=== PATIENT | female | born 1975 | race Caucasian/White ===

== ENCOUNTER 2017-07-12 12:16 | Emergency (ER) | payer BC ==
[~2017-07-12] VITALS: Ht 152.4 cm; Wt 104.3 kg
[~2017-07-12 12:16] MED LIST: ACETAMINOPHEN-O1 TAB PO; AMERINET C40 MG/0.4 IJ; COUMADIN 10MG T10 MG PO; COUMADIN 5MG TAB5 MG PO; COUMADIN 7.5MG7.5 MG PO; COUMADIN5 MG PO; LASIX 20MG. TAB20 MG PO; LOVENOX 10100 MG/11 SC; NOMEDS XX
--- OUTSIDE RECORDS SUMMARY | 2017-07-12 12:26 | External Medical Summary Rpt ---
Author Author TO Address Unknown Phone [email or web address] Purpose Continuity of Care Document - through 2016
--- OUTSIDE RECORDS SUMMARY | 2017-07-12 12:26 | External Medical Summary Rpt ---
Author Author TO Address Unknown Phone [email or web address] Purpose Continuity of Care Document - through 2016
--- OUTSIDE RECORDS SUMMARY | 2017-07-12 12:26 | External Medical Summary Rpt ---
Author Author , TO ARIZA Address Unknown Phone [email or web address] Care Team Providers Care Quality Project Manager Name Role Phone Kitty Lange MD, Unavailable Unavailable Kitty Lange MD Purpose Continuity of Care Document - 01-18-2014 through 2016 Problems Code Diagnosis DOS Provider Status 453.42 453.42 01-18-2014 [facility] EMBOLISM & THROMBOSIS DEEP VESSELS DISTAL LE D64.9 ANEMIA, UNSPECIFIED D86.9 SARCOIDOSIS , UNSPECIFIED I82.629 ACUTE EMBOLISM AND THROMBOSIS OF DEEP VN UNSP UP EXTREM J18.9 PNEUMONIA, UNSPECIFIED ORGANISM M79.602 PAIN IN LEFT ARM M79.605 PAIN IN LEFT LEG M79.672 Pain in left foot R00.0 TACHYCARDIA , UNSPECIFIED R09.02 HYPOXEMIA Z86.718 PERSONAL HISTORY OF OTHER VENOUS THROMBOSIS AND EMBOLISM Allergies, Adverse Reactions, Alerts Type Allergy to substance Drug Allergy Adverse Reaction to Substance Substance Reaction Severity INGREDIENT: NO KNOWN Unknown Unknown - NO KNOWN DRUG ALLERGY Metronidazole SOA Unknown Medications Na ND Rx Da Fi Fi Am Da Di Ph RX Ph St me C No te ll ll ou ys ag ar # ys at rm s nt no ma ic us Or Da si cy ia de te s n re d Sa 63 02 0 No li 80 -2 ne 70 1- Lo 10 20 ng Fl 07 14 er us 5 h Ac 10 ti ML ve Sy ri ng e Vital Signs 01-18-2014 19:03 Name Value Interpretat Reference Comment ion Range Body 98.2 [degF] Temperature BP 67 mm[Hg] Diastolic BP Systolic 146 mm[Hg] Heart 87 /min Rate/Pulse O2% 98 % Respiratory 22 /min Rate 01-18-2014 18:49 Name Value Interpretat Reference Comment ion Range Body 98.2 [degF] Temperature 01-18-2014 17:13 Name Value Interpretat Reference Comment ion Range BP 109 mm[Hg] Diastolic BP Systolic 160 mm[Hg] Heart 91 /min Rate/Pulse O2% 98 % Respiratory 20 /min Rate Results Labs Lab Lab Date Result Refere Interp Status Commen Order Detail nces retati t Range on BASIC METABOLIC PANEL (01-18-2014 16:30) Glucose 91 74-106 complet 014 mg/dL ed Bld-mCn 16:30 c BUN 10 7-18 complet Bld-mCn 014 mg/dL ed c 16:30 Creat 0.8 0.6-1.0 complet SerPl-m 014 mg/dL ed Cnc 16:30 Creat 172 50-200 complet Cl 014 ML/MIN ed predict 16:30 ed SerPl C-G-vRa te GFR/BSA 81 59- complet .pred 014 ML/MIN ed SerPl 16:30 Schwart z-vRate Sodium 139 136-145 complet SerPl-s 014 mmoL/L ed Cnc 16:30 Potassi 4.2 3.5-5.1 complet um 014 mmoL/L ed SerPl-s 16:30 Cnc Chlorid 100 98-107 complet e 014 mmoL/L ed SerPl-s 16:30 Cnc CO2 29 21.0-32 complet SerPl-s 014 mmoL/L .0 ed Cnc 16:30 Calcium 8.5 8.5-10. complet 014 mg/dL 1 ed SerPl-m 16:30 Cnc PROTIME/INR (01-18-2014 16:30) PROTHRO 16.4 9.9-11. complet MBIN 014 SECONDS 6 ed TIME 16:30 INR Bld 1.53 0.9-1.1 complet 014 UNK ed 16:30 Encounters Encounter Start End Date Code Location Performer Type Date Emergency PRECIOUS Lange MD (ER) 4 16:37 4 19:02 [facility]
--- OUTSIDE RECORDS SUMMARY | 2017-07-12 12:26 | External Medical Summary Rpt ---
Author Author , TO ARIZA Address Unknown Phone [email or web address] Immunization Name Date Rout CVX Reac Dose Comm Prov Is Faci e tion ent ider Refu lity Give sed n Infl 10-0 140 999 Hist LEXC No LEXC uenz 1-20 oric KIM ALVAREZ a, 12 al P-Fr Info ee rmat ion - Sour ce Unsp ecif ied
--- OUTSIDE RECORDS SUMMARY | 2017-07-12 12:26 | External Medical Summary Rpt ---
Author Author , TO ARIZA Address Unknown Phone [email or web address] Care Team Providers Care Popped Corn Oven Attendant Name Role Phone Kitty Lange MD, Unavailable Unavailable Kitty Lange MD Purpose Continuity of Care Document - 01-18-2014 through 2016 Problems Code Diagnosis DOS Provider Status 453.42 453.42 01-18-2014 [facility] EMBOLISM & THROMBOSIS DEEP VESSELS DISTAL [...] Lange MD (ER) 4 16:37 4 19:02 [facility]
--- OUTSIDE RECORDS SUMMARY | 2017-07-12 12:26 | External Medical Summary Rpt ---
Author Author TO Morris, TO Morris Organization TO Production Address Unknown Phone Unavailable
--- OUTSIDE RECORDS SUMMARY | 2017-07-12 12:26 | External Medical Summary Rpt ---
Author Author , TO ARIZA Address Unknown Phone [email or web address] Immunization Name Date Rout CVX Reac Dose Comm Prov Is Faci e tion ent ider Refu lity Give sed n Infl 10-0 140 999 Hist LEXC No LEXC uenz 1-20 oric KIM ALVAREZ a, 12 al P-Fr Info ee rmat ion - Sour ce Unsp ecif ied
--- NOTE | 2017-07-12 12:54 | Urgent Treatment Center Report ---
History of Present Issue Date/Time Seen by Provider 07/12/17 1232 Visit Reason Pt arrived:Walked Presenting Problem:PT STATES SHE BELIEVES SHE HAS A SINUS INFECTION. STATES CONGESTION THAT BEGAN TWO DAYS AGO Location if Accident: Onset of symptoms date/time:07/10/17/ or onset unknown for:MEDICAL HX UNKNOWN Have you (or family members/close friends) recently traveled outside the [place]? N If Yes, where/when: Have you had exposure to infectious disease within the past month? TB? Other? Specify: Patient state that she feels like she has a bad sinus infection State that she often gets sinus infection with the season change and changes in weather States that she is having pain and pressure behind her eyes and pain when she tries to chew food State that she also has a yeast infection and she knows that if she gets antibiotics it will only get worse ALLERGIES Coded Allergies: Sulfa (Sulfonamide Antibiotics) (07/12/17) metronidazole (From FLAGYL) (SOA 11/11/16) Home Medications Reported Medications WARFARIN SOD (Coumadin) 5 MG PO M,T,W,R WARFARIN SOD (Coumadin) 10 MG PO F,SAT,SUN History Medical History General CAD? No Angina: No [place]: No Hypertension? No Hyperlipidemia? No CHF? No DVT? Yes PE? No COPD? No Asthma? No Anemia? No GERD? No Gastric ulcers? No GI Bleed? No Hernia? No Thyroid Problems? No Hypothyroidism? No CVA? No Seizures? No Diabetes? No Renal Insuffiency? No UTI? No Stones? No GB Disease: Yes Nephritic Syndrome? No Asplenia? No Hepatitis? No Arthritis? No Migraines? No Cataracts? No Glaucoma? No MRSA? No HIV? No TB? No Anxiety? No Depression? No Cancer? No More? No Immunization HX DT/Tetanus Unknown Flu Flu Season Pneumonia Refuses Surgical Hx Previous Surgery?Y X 2 [place] STEEL PLATE LEFT ARM GASTRIC BYPASS TUBAL VAGINAL LAP ASSISTED -HYSTERECTOMY 11/08/16 Family History Family HX Diabetes Yes CAD Yes Hypertension Yes Hyperlipidemia Yes Cancer No TB No Social History Smoking Hx Smoker: Never Smoker Tobacco: No Alcohol Alcohol: No Review of Systems All Other Systems Reviewed and Negative ENT nose discharge, nose congestion. Genitourinary vaginal discharge. Physical Exam Vital Signs Vital Signs Date Time Temp Pulse Resp B/P Pulse O2 O2 Flow FiO2 Ox Delivery Rate 07/12 1230 97.7 105 20 137/88 99 General Appearance normal appearance, WD/WN, no apparent distress Ear, Nose, Throat sinus pain/drainage, nasal congestion, Throat mildly red and irritated, Tenderness noted on frontal sinus area with greenish yellow mucous Respiratory Status Yes: trachea midline, chest symmetrical, non tender chest. No: respiratory distress. Cardiovascular normal exam, regular rate/rhythm, no peripheral edema, no gallop Neurologic alert, merchandise coordinator II-XII nml as tested, normal exam, no motor/sensory deficits, oriented x 3 Comments Patient state that she is having yeast infection states that she is having the itching and burning, state that she has had it before Medical Decision Making LABS/Meds/Orders Pt receiving controlled substance in ED? No Results/Orders Laboratory Tests 07/12/17 1305: PT 11.4, INR 1.05 Current Medication Orders Sig/Shefali Start time Last Medication Dose Route Stop Time Status Admin Methylprednisolone 125 MG ONCE ONE 07/12 1300 DC 07/12 Sodium Succinate IM 07/12 1301 1252 Methylprednisolone 0 .STK-MED ONE 07/12 1249 DC Sodium Succinate .ROUTE Orders Procedure Date/time Status PROTHROMBIN TIME 07/12 1253 Complete Departure Departure Time of Disposition 1244 Disposition DC Home or Self Care(routine) Clinical Impression Primary Impression: Sinusitis Qualifiers: Sinusitis location: frontal Chronicity: unspecified Qualified Code: J32.1 - Chronic frontal sinusitis Condition STABLE Patient Instructions DI for Sinusitis, DI for Vaginal Yeast Infection, Sinusitis , Vaginal Yeast Infection Additional Instructions Take medication as prescribed Follow up with family doctor to watch INR as antibiotics can affect your INR Take medications as prescribed Return if needed Start antibiotic. It may take 2-3 days to notice much improvement so be sure to use conservative measures as discussed for symptoms Flonase 2 spray in each nostril daily to help with nasal congestion, sinus an ear pressure/inflammation Lots of Fluids Sleep elevated Humidifer/vaporizer Follow up with family doctor to monitor INR and adjust as needed Discharge Counseling Counseled pt/family regarding diagnosis, medications/RX, home care, follow up needs Prescriptions Current Visit Scripts Amoxicillin/Potassium Clav (Augmentin 875-125 Tablet) 1 EACH PO BID #14 TAB Fluconazole (Diflucan 150MG) 150 MG PO DAILY #2 TAB at 1344
[2017-07-12] MEDS ORDERED: AUGMENTIN 875-1 EACH PO (13:38)
[2017-07-12] MEDS ORDERED: DIFLUCAN150 MG PO (13:38)
[2017-07-12 13:42] VITALS: BP 137/88
== END 2017-07-12 13:15 | disposition home or self-care (01) ==
LOC: UTC 12:16
DX: J32.1 Chronic frontal sinusitis (principal); B37.3 Candidiasis of vulva and vagina; Z79.01 Long term (current) use of anticoagulants

== ENCOUNTER 2017-08-13 09:43 | Emergency (ER) | payer BC ==
[~2017-08-13] VITALS: Ht 152.4 cm; Wt 101.6 kg
[~2017-08-13 09:43] MED LIST changes: +AUGMENTIN 875-1 EACH PO; +DIFLUCAN150 MG PO
[2017-08-13] MEDS ORDERED: ZITHROMAX Z-PA250 M2 PO (10:53)
[2017-08-13] MEDS ORDERED: PREDNISONE 20MG20 MG PO (10:53)
[2017-08-13] MEDS ORDERED: FLONASE ALLERG9.9 ML NS (10:53)
--- NOTE | 2017-08-13 10:56 | Urgent Treatment Center Report ---
History of Present Issue Date/Time Seen by Provider 08/13/17 1047 Visit Reason Pt arrived:Walked Presenting Problem:PT STATES SINUS PAIN/PRESSURE, PRODUCTIVE COUGH WITH YELLOW/ GREEN SPUTUM X3 WEEKS Location if Accident: Onset of symptoms date/time:/ or onset unknown for:MEDICAL HX UNKNOWN Have you (or family members/close friends) recently traveled outside the [place]? N If Yes, where/when: Have you had exposure to infectious disease within the past month? TB? Other? Specify: Source patient Exam Limitations no limitations Comment 41-year-old female presents for nasal congestion, green nasal discharge, coughing up green sputum, and sinus pressure for 4 weeks and not improving. Patient states she was seen at the [facility] and was placed on steroids but improved only for about a week and then started having same symptoms. ALLERGIES Coded Allergies: Sulfa (Sulfonamide Antibiotics) (07/12/17) metronidazole (From FLAGYL) (SOA 11/11/16) Home Medications Active Scripts Amoxicillin/Potassium Clav (Augmentin 875-125 Tablet) 1 EACH PO BID #14 TAB Prov: 07/12/17 Discontinued Scripts Fluconazole (Diflucan 150MG) 150 MG PO DAILY #2 TAB Prov: 07/12/17 DC: 08/10/17 0000 Reported Medications WARFARIN SOD (Coumadin) 5 MG PO M,T,W,R WARFARIN SOD (Coumadin) 10 MG PO F,SAT,SUN History Medical History General CAD? No Angina: No [place]: No Hypertension? No Hyperlipidemia? No CHF? No DVT? Yes PE? No COPD? No Asthma? No Anemia? No GERD? No Gastric ulcers? No GI Bleed? No Hernia? No Thyroid Problems? No Hypothyroidism? No CVA? No Seizures? No Diabetes? No Renal Insuffiency? No UTI? No Stones? No GB Disease: Yes Nephritic Syndrome? No Asplenia? No Hepatitis? No Arthritis? No Migraines? No Cataracts? No Glaucoma? No MRSA? No HIV? No TB? No Anxiety? No Depression? No Cancer? No More? No Immunization HX DT/Tetanus Unknown Flu Flu Season Pneumonia Refuses Surgical Hx Previous Surgery?Y X 2 [place] STEEL PLATE LEFT ARM GASTRIC BYPASS TUBAL VAGINAL LAP ASSISTED -HYSTERECTOMY 11/08/16 Family History Family HX Diabetes Yes CAD Yes Hypertension Yes Hyperlipidemia Yes Cancer No TB No Social History Smoking Hx Smoker: Never Smoker Tobacco: No Alcohol Alcohol: No Review of Systems All Other Systems Reviewed and Negative ENT see HPI, nose discharge, nose congestion. Respiratory see HPI, cough Cardiovascular denies no symptoms reported Physical Exam Vital Signs Vital Signs Date Time Temp Pulse Resp B/P Pulse O2 O2 Flow FiO2 Ox Delivery Rate 08/13 1015 98.2 104 20 109/70 98 - WBC >12,000 or <4,000 or 10% bands? 2 or more SIRS Criteria Met? B/P:109/70 MAP:83 Creatinine >2.0? UA output<0.5ml/kg/hr for 2 hrs? Platelet count >100,000? Lactate >2.0mmol/1? INR >1.2 or PTT > than 60 sec? Evidence of Organ Dysfunction? Provider documented clinical suspician of infection? Sepsis Criteria Count: 2 Sepsis Risk: General Appearance normal appearance, no apparent distress Eye Exam - bilateral eye normal exam, bilateral eye PERRL, bilateral eye EOMI Ear, Nose, Throat sinus pain/drainage, nasal congestion, pharyngeal erythema Neck normal inspection, full range of motion Respiratory Status Yes: trachea midline, chest symmetrical. No: respiratory distress. Lung Sounds bilateral: normal breath sounds, lungs clear. Cardiovascular normal exam, regular rate/rhythm Neurologic alert, normal exam, oriented x 3 Medical Decision Making LABS/Meds/Orders Pt receiving controlled substance in ED? No Results/Orders Current Medication Orders Sig/Shefali Start time Last Medication Dose Route Stop Time Status Admin Dexamethasone Sodium 0 .STK-MED ONE 08/13 1051 DC Phosphate .ROUTE Dexamethasone Sodium 4 MG ONCE ONE 08/13 1045 DC Phosphate IM 08/13 1046 Departure Departure Time of Disposition 1050 Disposition DC Home or Self Care(routine) Clinical Impression Primary Impression: Sinusitis Qualifiers: Sinusitis location: maxillary Chronicity: acute Recurrence: non- recurrent Qualified Code: J01.00 - Acute maxillary sinusitis, unspecified Condition STABLE Referrals NIKKI REYES (Family) Patient Instructions DI for Sinusitis, Sinusitis Additional Instructions Medication as ordered, start steroids tomorrow Follow-up with primary care this week If symptoms do not improve or worsen return to be seen in the ER or UTC Discharge Counseling Counseled pt/family regarding diagnosis, medications/RX, home care, follow up needs Prescriptions Current Visit Scripts Azithromycin (Zithromax) 250 MG PO DAILY #6 TAB USE DIRECTED. Fluticasone Propionate (Flonase Allergy Relief) 9.9 ML NS DAILY 14 Days Prednisone (Prednisone 20MG) 20 MG PO BID 5 Days Comments Patient states she no longer takes Coumadin at 1052
[2017-08-13 11:13] VITALS: BP 109/70
== END 2017-08-13 11:21 | disposition home or self-care (01) ==
LOC: UTC 09:43
DX: J01.00 Acute maxillary sinusitis, unspecified (principal); Z86.718 Personal history of other venous thrombosis and embolism; Z79.01 Long term (current) use of anticoagulants

== ENCOUNTER 2017-10-05 08:51 | Emergency (ER) | payer BC ==
[~2017-10-05] VITALS: Ht 152.4 cm; Wt 106.6 kg
[~2017-10-05 08:51] MED LIST changes: +FLONASE ALLERG9.9 ML NS; +PREDNISONE 20MG20 MG PO; +ZITHROMAX Z-PA250 M2 PO
--- OUTSIDE RECORDS SUMMARY | 2017-10-05 08:54 | External Medical Summary Rpt | CCD ---
Author Author , TO Organization TO Address Unknown Phone [email or web address] Care Team Providers Care Taxicab Starter Name Role Phone Kitty Lange MD, Unavailable Unavailable Kitty Lange MD Purpose Continuity of Care Document - 01-18-2014 through 2016 Problems Code Diagnosis DOS Provider Status 453.42 453.42 01-18-2014 [facility] EMBOLISM & THROMBOSIS DEEP VESSELS DISTAL LE Allergies, Adverse Reactions, Alerts Type Allergy to [...] Lange MD (ER) 4 16:37 4 19:02 [facility]
--- OUTSIDE RECORDS SUMMARY | 2017-10-05 08:54 | External Medical Summary Rpt | CCD ---
Author Author , TO Organization TO Address Unknown Phone [email or web address] Care Team Providers Care Shift Supervisor Melting Name Role Phone Kitty Lange MD, Unavailable Unavailable Kitty Lange MD Purpose Continuity of Care Document - 01-18-2014 through 2016 Problems Code Diagnosis DOS Provider Status 453.42 453.42 01-18-2014 [facility] EMBOLISM & THROMBOSIS DEEP VESSELS DISTAL LE [...] Lange MD (ER) 4 16:37 4 19:02 [facility]
--- OUTSIDE RECORDS SUMMARY | 2017-10-05 08:55 | External Medical Summary Rpt ---
Author Author TO Morris, TO Production Organization TO Production Address Unknown Phone Unavailable Results INR in Blood by Coagulation assay Observa Value Referen Units Interpr Notes Date tion ce etation Range IS PATIENT ON ANTICOAGULANTS? Y LIST ANTICOAGULANTS: WARFARIN INR in 0.9 - 1.1 No Normal INDICATIO Jul 12 Blood by informati N 2016 1:05 Coagulati on in PM on assay source INR data RANGETHER APY FOR DVT, PE, ATRIAL FIB; 2.0 - 3.0PROPHY LAXIS FOR VTETHERAP Y FOR MECHANICA L HEART 2.5 - 3.5VALVE; PREVENTIO N OF SYSTEMICE MBOLISM SECONDARY TO AMI Prothromb 9.4 - SECONDS Normal No Jul 12 in time 11.8 informati 2016 1:05 (PT) in on in PM Platelet source poor data plasma by Coagulati on assay
--- OUTSIDE RECORDS SUMMARY | 2017-10-05 08:55 | External Medical Summary Rpt | CCD ---
Author Author Conduent Organization Conduent Address Unknown Phone Unavailable Purpose Continuity of Care Document - through 2016
--- OUTSIDE RECORDS SUMMARY | 2017-10-05 08:55 | External Medical Summary Rpt | CCD ---
Author Author , TO Organization TO Address Unknown Phone [email or web address] Immunization Name Date Rout CVX Reac Dose Comm Prov Is Faci e tion ent ider Refu lity Give sed n Infl 10-0 140 999 Hist LEXC No LEXC uenz 1-20 oric KIM ALVAREZ a, 12 al P-Fr Info ee rmat ion - Sour ce Unsp ecif ied
--- OUTSIDE RECORDS SUMMARY | 2017-10-05 08:55 | External Medical Summary Rpt | CCD ---
Author Author , TO Organization TO Address Unknown Phone [email or web address] Immunization Name Date Rout CVX Reac Dose Comm Prov Is Faci e tion ent ider Refu lity Give sed n Infl 10-0 140 999 Hist LEXC No LEXC uenz 1-20 oric KIM ALVAREZ a, 12 al P-Fr Info ee rmat ion - Sour ce Unsp ecif ied
--- NOTE | 2017-10-05 09:25 | Urgent Treatment Center Report ---
History of Present Issue Date/Time Seen by Provider 10/05/17923 Visit Reason Pt arrived:Walked Presenting Problem:weak, dizzy, fever x2 days Location if Accident: Onset of symptoms date/time:/ or onset unknown for:MEDICAL HX UNKNOWN Have you (or family members/close friends) recently traveled outside the [place]? N If Yes, where/when: Have you had exposure to infectious disease within the past month? TB? Other? Specify: Patient state that she has been having flu like symptoms for several days now State that she has felt dizzy, weak and had a fever on and off State that now her throat is sore and she is having body aches from head to toe and over all not feeling well State that she also just began to have some nausea and upset stomach. States that she was haivng sinus issues a couple weeks ago that just went away and now they seem to be worse blowing out yellowish green mucous ALLERGIES Coded Allergies: Sulfa (Sulfonamide Antibiotics) (07/12/17) metronidazole (From FLAGYL) (SOA 11/11/16) Home Medications Active Scripts Amoxicillin/Potassium Clav (Augmentin 875-125 Tablet) 1 EACH PO BID #14 TAB Prov: 07/12/17 Azithromycin (Zithromax) 250 MG PO DAILY #6 TAB Prov: 08/13/17 Fluticasone Propionate (Flonase Allergy Relief) 9.9 ML NS DAILY 14 Days Prov: 08/13/17 Prednisone (Prednisone 20MG) 20 MG PO BID 5 Days Prov: 08/13/17 Reported Medications WARFARIN SOD (Coumadin) 5 MG PO M,T,W,R WARFARIN SOD (Coumadin) 10 MG PO F,SAT,SUN History Medical History General CAD? No Angina: No [place]: No Hypertension? No Hyperlipidemia? No CHF? No DVT? Yes PE? No COPD? No Asthma? No Anemia? No GERD? No Gastric ulcers? No GI Bleed? No Hernia? No Thyroid Problems? No Hypothyroidism? No CVA? No Seizures? No Diabetes? No Renal Insuffiency? No UTI? No Stones? No GB Disease: Yes Nephritic Syndrome? No Asplenia? No Hepatitis? No Arthritis? No Migraines? No Cataracts? No Glaucoma? No MRSA? No HIV? No TB? No Anxiety? No Depression? No Cancer? No More? No Immunization HX DT/Tetanus Unknown Flu Flu Season Pneumonia Refuses Surgical Hx Previous Surgery?Y X 2 [place] STEEL PLATE LEFT ARM GASTRIC BYPASS TUBAL VAGINAL LAP ASSISTED -HYSTERECTOMY 11/08/16 Family History Family HX Diabetes Yes CAD Yes Hypertension Yes Hyperlipidemia Yes Cancer No TB No Social History Smoking Hx Smoker: Never Smoker Tobacco: No Alcohol Alcohol: No Review of Systems All Other Systems Reviewed and Negative Constitutional chills, fever ENT nose discharge, nose congestion, throat pain. Respiratory cough Psychiatric/Neurological headache Physical Exam Vital Signs Vital Signs Date Time Temp Pulse Resp B/P Pulse O2 O2 Flow FiO2 Ox Delivery Rate 10/05 907 97.7 97 16 133/86 98 General Appearance Appears ill pale in color, sitting on exam chair Ear, Nose, Throat sinus pain/drainage, nasal congestion, Throat red, irritated tenderness noted frontal sinsues, nares red reports dark yellowish green drainage Respiratory Status Yes: trachea midline, chest symmetrical. No: respiratory distress. Cardiovascular normal exam, regular rate/rhythm, no peripheral edema Neurologic alert, normal exam, oriented x 3 Medical Decision Making LABS/Meds/Orders Pt receiving controlled substance in ED? No Results/Orders Laboratory Tests 10/05/17 09: Influenza Type A Ag NOT DETECTED, Influenza Type B Ag NOT DETECTED, Group A Strep Screen NOT DETECTED Orders Procedure Date/time Status UTC STREP SCREEN 10/05 924 Complete UTC FLU A,B 10/05 924 Complete Progress [facility] Progress Notes Comment Patient advised that she no longer is on Warfarin or any anticoagulants Departure Departure Time of Disposition 09 Disposition DC Home or Self Care(routine) Clinical Impression Primary Impression: Upper respiratory infection Qualifiers: URI type: unspecified URI Qualified Code: J06.9 - Acute upper respiratory infection, unspecified Condition STABLE Referrals SAMI MIR (Family) Patient Instructions DI for Fever (Symptom) -- Adult, DI for Nasal Congestion, Sinus Headache, Sinusitis, Sore Throat Additional Instructions * Monitor Temp. Tylenol and/or Ibuprofen as needed. ER if fever is no less than 101 despite alternating Tylenol and Ibuprofen * Encourage fluids, water, Gatorade, powerade, pedialyte if infant/toddler/or child * Warm salt water gargles for throat irritation *Warm fluids *Sore throat lozenges *Sleep elevated *humidifier or vaporizer Lots of rest Increase fluids, water, Gatorade, powerade *Flonase 2 sprays each nostril daily but may take 2-3 days to notice improvement with it Your throat swab was sent to lab for culture. Those results area typically sent to your primary care physician. Be sure to follow up in 2-3 days if no improvement so they can review those results and treat if necessary If you dont have primary care I recommend you get one, but in the mean time you will have to return to a walk in clinic Follow up IMMEDIATELY for new or worsening of symptoms OR no noticeable improvement over the next 48-72 hours. 911 immediately for any life threatening symptoms such as chest pain or difficulty breathing Discharge Counseling Counseled pt/family regarding diagnosis, test results, medications/RX, home care, follow up needs Prescriptions Current Visit Scripts Azithromycin (Zithromycin (Z-KARLY) 250MG Tab) 250 MG PO DAILY #6 TAB TAKE TWO (2) TABLETS ON DAY 1, THEN ONE (1) TABLET DAY #2 THRU #5 Methylprednisolone (Medrol Dose Karly) 4 MG PO UD #1 KARLY TAKE DIRECTED ON PACKAGING at 0946
[2017-10-05 09:28] LABS: UTC STREP SCREEN NOT DETECTED (NOTDETECTED)
[2017-10-05] MEDS ORDERED: ZITHROMAX Z PA250 MG PO (09:45)
[2017-10-05] MEDS ORDERED: MEDROL 4MG. DOSE4 MG PO (09:45)
[2017-10-05 09:51] VITALS: BP 133/86
== END 2017-10-05 09:51 | disposition home or self-care (01) ==
LOC: UTC 08:51
PROVIDERS: Nurse Practitioner
DX: J06.9 Acute upper respiratory infection, unspecified (principal); Z88.2 Allergy status to sulfonamides; R42 Dizziness and giddiness; Z86.718 Personal history of other venous thrombosis and embolism; Z79.01 Long term (current) use of anticoagulants